=== PATIENT | female | born 1970 | race Two or more races ===

== ENCOUNTER 2019-06-27 19:26 | Emergency (ER) | payer SELFPAY ==
[~2019-06-27] VITALS: Ht 160 cm; Wt 70.8 kg
[2019-06-27] MEDS ORDERED: FLUORESCEIN OPHTH TEST STRIP. ONE (19:47)
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
[2019-06-27 21:23] VITALS: BP 128/93
== END 2019-06-27 21:25 | disposition home or self-care (01) ==
LOC: ER 19:26
DX: S00.12XA Contusion of left eyelid and periocular area, initial encounter (principal); S00.83XA Contusion of other part of head, initial encounter; Y08.89XA Assault by other specified means, initial encounter; Y93.89 Activity, other specified; Y92.481 Parking lot as the place of occurrence of the external cause; Y99.8 Other external cause status
CPT/HCPCS: 70450; 70486; 81025; 99284